=== PATIENT | female | born 1990 | race Caucasian/White ===

== ENCOUNTER 2017-10-26 00:46 | Emergency (ER) | payer MEDICAID ==
[~2017-10-26] VITALS: Ht 157.5 cm; Wt 46.4 kg
[~2017-10-26 00:46] MED LIST: FLUC200T PO; TRAM50TA2 PO
[2017-10-26] MEDS ORDERED: SULF1TAB49 PO (01:08)
[2017-10-26 01:18] VITALS: BP 118/78
== END 2017-10-26 01:20 | disposition home or self-care (01) ==
LOC: ER 00:47
DX: L03.112 Cellulitis of left axilla (principal); F41.9 Anxiety disorder, unspecified; R11.0 Nausea
CPT/HCPCS: 99283